=== PATIENT | female | born 2000 | race Caucasian/White ===

== ENCOUNTER 2025-10-21 09:55 | Outpatient (REF) | payer OTHER, SELFPAY ==
--- NOTE | ~2025-10-21 | US_ITS ---
EXAMINATION: US DIAGNOSTIC ULTRASOUND BREAST, LEFT CLINICAL INFORMATION: LT BR LUMP @ TIP OF NIPPLE APPROX <1MM. COMPARISON: None available. FINDINGS: Targeted ultrasound was performed over the left nipple. No suspicious sonographic findings or abnormal vascularity demonstrated with color Doppler evaluation. US/US Breast LT Limited Mamm Only IMPRESSION: Left breast: No suspicious sonographic findings. Clinical follow-up is recommended for the skin lesions. Results are provided to the patient at time of visit by the technologist. ASSESSMENT: Category 1: Negative RECOMMENDATION: 1. Patient should be managed based on the clinical impression. 2. Otherwise, routine annual screening mammography. This patient's information was entered into a reminder system with a target due date for their next mammogram. Electronically signed by: Femi Archuleta MD 10/21/2025 12:02 PM [facility]OR
--- OUTSIDE RECORDS SUMMARY | 2025-10-21 11:50 | XMS_ITS | Clinical Summary ---
Author Organization [facility] Address [address] [place] [address] Phone Care Team Providers Care Hr Payroll Coordinator Name Role Phone Physician, No Pcp Primary Care Provider Unavaila ble Allergies Active Allergy Reactions Criticality Noted Date Comments Amoxicillin Rash Low 05/01/2012 Medications Vienva 0.1-20 mg-mcg per tabletIndications :Dysmenorrhea,Ora l contraceptive use Take one tab po qd 84 tablet 3 03/28/20 25 Active naproxen sodium (Anaprox DS) 550 mg tabletIndications :Dysmenorrhea Take one tab po bid prn dysmenorrhea 30 each 3 03/28/20 25 Active Active Problems Problem Noted Date Diagnosed Date Family history of breast cancer 03/28/2025 Assessment & Plan (03/28/2025 8:30 AM MDT): This was not a primary degree relative, and diagnosis was postmenopausal. Continue monthly BSE and annual CBE. Follow-up if any breast changes or concerns present. Well adult exam 03/28/2025 Assessment & Plan (03/28/2025 8:31 AM MDT): Fasting wellness labs collected today. Await results. Encounter for gynecological examination without abnormal finding 04/19/2024 Assessment & Plan (03/28/2025 8:29 AM MDT): Reviewed Pap and pelvic guidelines. Cytology collected today per patient request. Screen for STD (sexually transmitted disease) Assessment & Plan (03/28/2025 8:31 AM MDT): Await chlamydia and gonorrhea screening. Continue with consistent condom use. Oral contraceptive use 04/19/2024 Assessment & Plan (03/28/2025 8:30 AM MDT): Patient is doing well with OCPs and desires to continue. Refill sent today. ASCUS of cervix with negative high risk HPV 03/28 Dysmenorrhea 04/19/2024 Assessment & Plan (03/28/2025 8:30 AM MDT): Discussed additional options for dysmenorrhea treatment, to include menstrual suppression with her current OCPs, Anaprox DS with alternating APAP. Patient declines menstrual suppression, as she had tried this previously short-term and disliked dysfunctional uterine bleeding. She desires to trial Anaprox DS, and will plan to alternate with Tylenol as well. If symptoms persist or progress despite above- noted plan, she will seek care in [place]. Assessment & Plan (04/19/2024 9:44 AM MDT): Discussed taking IBU 600mg TID, 2 days prior to onset of menses. She can also take 1000mg of acetaminophen or Midol TID in addition to IBU for pain management. We did discuss period suppression with OCPs and Mirena IUD if NSAIDS and tylenol do not improve her pain. She would like to trial IBU and tylenol at this time. Pre-menstrual syndrome 04/19/2024 Assessment & Plan (04/19/2024 9:48 AM MDT): Having worsened anxiety one week prior to menses. She is already doing counseling. Discussed taking L-theanine starting at 200 mg QHS and increasing up to 1200mg QHS. We also discussed trial-ing Buspar or hydroxyzine if the L-theanine did not work for her anxiety. Surgical History Surgery Date Site/Laterality Comments WISDOM TOOTH EXTRACTION TYMPANOSTOMY TUBE PLACEMENT Family History Medical History Relation Name Comments Thyroid disease Brother Andrew Thyroid disease Father Cooper Breast cancer Father's Sister María Alcohol abuse Maternal Grandfather [place] Hypertension Mother Rose Polycystic ovary syndrome Mother Rose Thyroid disease Mother Rose Alcohol abuse Other Alcohol abuse Paternal Grandfather Cooper Thyroid disease Paternal Grandmother Lyn Relation Name Status Comments Brother Andrew Father Cooper Father's Sister María Maternal Grandfather Fernanda Mother Rose Other Paternal Grandfather Cooper Paternal Grandmother Lyn Social History Tobacco Use Types Packs/Day Years Used Date Smoking Tobacco: Never Smokeless Tobacco: Never Tobacco Cessation:Counseling Given: Not Answered Alcohol Use Standard Drinks/Week Comments Yes 0 (1 standard drink = 0.6 oz pur e alcohol) Housing Instability Answer Date Recorde d Are you worried that in the next 2 months you may not have stable housing? No 04/19/2024 Food Access & Nutrition Answer Date Rec orded Do you have access to a vari ety of food including fruits and vegetables? Yes 04/19/2024 Access to Healthcare Answer Date Record ed Within the last 3 months, ho w many times did you visit the emergency department for your medical care? 0 04/19/2024 Health Literacy Answer Date Recorded How often do you need to hav e someone help you when you read instructions, pamphlets, or other written material from your doctor or pharmacy? Never 04/19/2024 Caregiver: How often do you need to have someone help you when you read instructions, pamphlets, or other written material from your doctor or pharmacy? Not on file 04/19/2024 Financial Risk Answer Date Recorded How hard is it for you to pa y for the very basics like food, housing, medical care, and air conditioning / heating? Not very hard 04/19/2024 Transportation Answer Date Recorded Has the lack of transportati on kept you from meetings, work, or from getting things needed for daily living? No Has the lack of transportati on kept you from medical appointments or from getting medications? No 04/19/2024 Social Isolation Answer Date Recorded How often do you feel lonely or isolated from those around you? Sometimes 04/19/2024 Food Risk Answer Date Recorded Within the past 12 months we worried whether our food would run out before we got money to buy more. Never true 04/19/2024 Within the past 12 months th e food we bought just didn't last and we didn't have money to get more. Never true 04/19/2024 Comments No Sex and Gender Information Value Date Recorded Sex Assigned at Female 04/19/2024 11:28 AM EDT Legal Sex Female 12:14 PM EDT Gender Identity Female 04/19/2024 11:28 AM EDT Sexual Orientation Not on file Obstetrics History Para Term AB IAB SAB Ectopic Multiple Livin g Live Births 0 0 0 0 0 0 0 0 Last Filed Vital Signs Vital Sign Reading Time Taken Comments Blood Pressure 125/80 03/28/2025 7:50 AM MDT Pulse 56 03/28/2025 7:50 AM MDT Temperature - - Respiratory Rate - - Oxygen Saturation 99% 03/28/2025 7:50 AM MDT Inhaled Oxygen Concentration - - Weight 74.4 kg (164 lb) 03/28/2025 7:50 AM MDT Height 162.6 cm (5' 4 ) 03/28/2025 7:50 AM MDT Body Mass Index 28.15 03/28/2025 7:50 AM MDT Plan of Treatment Health Maintenance Due Date Last Done Comments Meningococcal B Vaccine (1 of 2 - Standard) 2017 HIV Screening 03/25/2024 Hepatitis C Screening 03/25/2024 Social Influencers of Health Screening 04/19/2025 04/19/2024 COVID-19 Vaccine ( season) 2025 08/09/2024, 09/02/2023, 09/23/2022, Additional history exists Influenza Vaccine (#1) 2025 , 09/02/2023, 08/13/2022, Additional history exists Gonorrhea/Chlamydia Screening 03/28/2026 03/28/2025 Cervical Cancer Screening: Pap Smear 03/28/2028 03/28/2025 Cholesterol Screening (Lipid Panel) 03/28/2030 03/28/2025 DTaP,Tdap,and Td Vaccines (8 - Td or Tdap) 07/16/2031 07/16/2021, 07/16/2014, 07/26/2007, Additional history exists RSV Immunization Adult Patients (1 - 1-dose 75+ series) 2076 HIB Vaccines Completed 12/05/2002, 02/26, 01/17/2002 Hepatitis B Vaccines Completed 12/05/2002, 03/19/2002, 01/17/2002 Pneumococcal Vaccine: Pediatrics (0 to 5 Years) and At-Risk Patients (6 to 49 Years) Completed 12/05/2002, 06/18/2002, 03/19/2002, Additional history exists IPV Vaccines Completed 07/03/2007, 05/2005, 07/15/2003, Additional history exists MMR Vaccines Completed 07/03/2007, 04/08/2003 Varicella Vaccines Completed 07/03/2007, 04/08/2003 HPV Vaccines Completed 10/11/2013, 03/28, 02/12/2013 Hepatitis A Vaccines Completed 07/16/2014, 07/03/20 Meningococcal ACWY Vaccine Aged Out 07/16/2021, No longer eligible based on patient's age to complete this topic Depression Screening Completed 03/28/2025 RSV Immunization Patients Under 20 months Aged Out No longer eligible based on patient's age to complete this topic Procedures Procedure Name Priority Date/Time Associated Diagnosis Comments LIPID PANEL Routine 03/28/2025 8:26 AM MDT Well adult exam PAP SMEAR Routine 03/28/2025 8:25 AM MDT Encounter for gynecological examination without abnormal finding Screen for STD (sexually transmitted disease) CHLAMYDIA TRACHOMATIS AND NEISSERIA GONORRHOEAE PCR, UROGENITAL Routine 03/28/2025 8:25 AM MDT Encounter for gynecological examination without abnormal finding Screen for STD (sexually transmitted disease) from Last 3 Months or Most Recently Relevant to Health Maintenance Results * (ABNORMAL) Lipid panel (03/28/2025 8:26 AM MDT) Cholesterol 176 <200 mg/dL LAB CHEMISTRY METHOD 03/28/2025 6:46 PM MDT [facility] Triglycerides 60 <150 mg/dL LAB CHEMISTRY METHOD 03/28/2025 6:46 PM MDT [facility] HDL 55 >39 mg/dL LAB CHEMISTRY METHOD 03/28/2025 6:46 PM MDT [facility] LDL Calculated 109(H) <100 mg/dL LAB CHEMISTRY METHOD 03/28/2025 6:46 PM MDT [facility] VLDL Cholesterol Kevin 12 <30 mg/dL LAB CHEMISTRY METHOD 03/28/2025 6:46 PM MDT [facility] Non HDL Chol. (LDL+VLDL) 121 mg/dL LAB CHEMISTRY METHOD 03/28/2025 6:46 PM MDT [facility] Chol/HDL Ratio 3.2 <4.5 LAB CHEMISTRY METHOD 03/28/2025 6:46 PM MDT [facility] Blood Venous blood specimen / Unknown Venipuncture / Unknown 03/28/2025 8:26 AM MDT 03/28/2025 8:26 AM MDT us Beverley ZHANG LAB BLOOD ORDERABLES Final Re sult [facility] [address] [place] [address] * Chlamydia trachomatis and Neisseria gonorrhoeae, urogenital (03/28/2025 8:25 AM MDT) N. gonorrhoeae, RNA Probe Negative Negative METHOD APTIMA SARS-COV-2 [employer]EUA 03/31/2025 1:50 PM MDT [facility] Chlamydia, RNA Probe Negative Negative METHOD APTIMA SARS-COV-2 [employer]EUA 03/31/2025 1:50 PM MDT [facility] Broom Cervix uteri structure / Unknown 03/28/2025 8:25 AM MDT 03/31/2025 9:10 AM MDT us Beverley ZHANG LAB MICROBIOLOGY - GENERAL OR DERABLES Final Result [facility] [address] [place] [address], [place] [id number] * Pap smear (03/28/2025 8:25 AM MDT) Interpretation Negative for intraepithelial lesion or malignancy 04/01/2025 9:08 AM MDT [facility] 03/08/2025 04/01/2025 9:08 AM MDT [facility] Specimen Adequacy Satisfactory for evaluation, endocervical/trans formation zone component present 04/01/2025 9:08 AM MDT [facility] Pap Methodology Liquid Based Pap Test 04/01/2025 9:08 AM MDT [facility] Disclaimer Cervicovaginal cytology should be considered a screening procedure subject to false negatives and false positives. Results are more reliable when a satisfactory sample is obtained on a regular repetitive basis and should be interpreted with past and current clinical data. This Pap smear was screened by a head of maintenance with the assistance of the automated [email or web address] ThinPrep Imaging System (which has been proven to decrease false negative results). The technical components of this case were performed at [address] [place] [id number] 04/01/2025 9:08 AM MDT [facility] Console Pap Interpretation Reported 04/01/2025 9:08 AM ART [facility] Broom Cervix uteri structure / Unknown 03/28/2025 8:25 AM MDT 03/28/2025 8:25 AM MDT us Beverley ZHANG LAB CYTOLOGY ORDERABLES Final Result [facility] [address] [place] [address], [place] [id number] from Last 3 Months or Most Recently Relevant to Health Maintenance Insurance [facility] Care Teams Hr Payroll Coordinator Relationship Specialty Start Date End Date Physician, No Pcp PCP - General 03/25/24
--- OUTSIDE RECORDS SUMMARY | 2025-10-21 11:50 | XMS_ITS | Clinical Summary ---
Author Organization [facility] Address [address] [place] [phone] Phone Care Team Providers Care Chief Controller Center Name Role Phone Unavailable Primary Care Provider Unavailabl e Encounters Date Type Department Care Team Description 10/02/2025 Transcribe Orders Virtual Department [address] [place] [address] Addi Austin, KIM Mass of left breast, unspecified quadrant (Primary Dx) from Last 3 Months Social History Tobacco Use Types Packs/Day Years Used Date Smoking Tobacco: Never Assessed Comments Unknown Sex and Gender Information Value Date Recorded Sex Assigned at Not on file Legal Sex Female 8:27 AM EDT Gender Identity Not on file Sexual Orientation Not on file Plan of Treatment Not on file Medical Devices Not on file Additional Source Comments The information contained in this document represents components of the legal health record. It is not the complete legal health record.[facility]
== END 2025-10-21 09:56 | disposition home or self-care (01) ==
LOC: HO.MAMMO 09:55
PROVIDERS: Visit Provider Nurse Practitioner Women's Health
DX: N63.20 Unspecified lump in the left breast, unspecified quadrant (principal); N64.9 Disorder of breast, unspecified
CPT/HCPCS: 76642

== ENCOUNTER → 2025-10-21 10:00 | Outpatient (BNV) | payer OTHER, SELFPAY | PROVIDERS: Visit Provider Radiology Body Imaging | DX: N63.20 Unspecified lump in the left breast, unspecified quadrant (principal) | CPT/HCPCS: 76642 ==